=== PATIENT | female | born 1980 | race Two or more races ===

== ENCOUNTER 2017-07-27 11:12 | Emergency (ER) | payer MEDICAID ==
[~2017-07-27] VITALS: Ht 172.7 cm; Wt 77.1 kg
[2017-07-27 11:14] VITALS: BP 149/92
== END 2017-07-27 11:53 | disposition home or self-care (01) ==
LOC: ER 11:15
DX: J06.9 Acute upper respiratory infection, unspecified (principal); E03.9 Hypothyroidism, unspecified; Z88.0 Allergy status to penicillin
CPT/HCPCS: A4606; Z7502; Z7610